=== PATIENT | male | born 1985 | race American Indian/Alaskan Native ===

== ENCOUNTER 2017-01-10 21:48 | Emergency (ER) | payer SELFPAY ==
--- NOTE | 2017-01-10 23:46 | XRay Report ---
FINAL REPORT PROCEDURE: XR HUMERUS 2+V LT TECHNIQUE: LEFT humerus radiographs, AP and lateral views. HISTORY: LEFT SHOULDER/LEFT ELBOW PAIN COMPARISON: No prior studies are available for comparison. FINDINGS: Fracture (s) and/or Dislocation(s): None . Joint space(s): Normal. Soft tissues: Normal. Bone mineralization: Normal. Foreign bodies: None. IMPRESSION: Normal Examination.
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
[2017-01-11] MEDS ORDERED: PERCOCET 5/325 PO ONE (02:00)
[2017-01-11] MEDS ORDERED: TRIPLE ANTIBIOTIC TP ONE (02:27)
[2017-01-11 02:43] VITALS: BP 132/84
== END 2017-01-11 02:35 | disposition home or self-care (01) ==
LOC: ED 21:48
DX: S40.812A Abrasion of left upper arm, initial encounter (principal); S40.022A Contusion of left upper arm, initial encounter; M79.1 Myalgia; M79.602 Pain in left arm; F17.200 Nicotine dependence, unspecified, uncomplicated; V86.99XA Unspecified occupant of other special all-terrain or other off-road motor vehicle injured in nontraffic accident, initial encounter; Y93.9 Activity, unspecified; Y92.9 Unspecified place or not applicable; Y99.9 Unspecified external cause status
CPT/HCPCS: 99284; A6250

== ENCOUNTER 2019-02-08 16:33 | Emergency (ER) | payer SELFPAY ==
[2019-02-08 17:32] VITALS: BP 133/67
[2019-02-08] MEDS ORDERED: IMITREX SUB-Q ONE (19:52)
--- NOTE | 2019-02-08 21:06 | Emergency Department Report ---
ED Headache HPI - General Chief Complaint: Headache Stated Complaint: HEADACHE X2WKS Time Seen by Provider: 02/08/19 19:25 - History of Present Illness Initial Comments: Patient is a 33-year-old male who presents to emergency room with complaints of a right frontal and surrounding the right eye headache that began 2 weeks ago. States his right eye has been watering. He states he does have blurry vision of the right eye when the pain gets uncomfortable but otherwise has no vision changes. He denies any numbness, weakness, gait disturbance, speech disturbance. He states that he has experienced these type of headaches in the past with the same symptoms. he denies any medical history or allergies to medications. Allergies/Adverse Reactions: Allergies No Known Allergies Allergy (Verified 02/08/19 16:53) Home Medications: Ambulatory Orders DOXYCYCLINE Hyclate [Vibramycin CAP] 100 mg PO Q12HR #20 capsule 04/29/17 Naproxen [Naprosyn] 500 mg PO BID PRN #20 tablet 04/29/17 traMADol [Ultram] 50 mg PO Q6HR PRN #12 tablet 04/29/17 Butalb/Acetaminophen/Caffeine [Fioricet 50-300-40 mg CAP] 1 cap PO Q8HR PRN #10 cap 02/08/19 ED Review of Systems ROS: Stated complaint: HEADACHE X2WKS Other details as noted in HPI Comment: All other systems reviewed and negative ED Past Medical Hx - Past Medical History Previous Medical History?: No - Surgical History Past Surgical History?: No - Social History Smoking Status: Current Every Day Smoker Substance Use Type: Alcohol, Marijuana - Medications Home Medications: Home Medications Medication Instructions Recorded Confirmed Last Taken Type DOXYCYCLINE Hyclate [Vibramycin 100 mg PO Q12HR #20 capsule 04/29/17 Unknown Rx CAP] Naproxen [Naprosyn] 500 mg PO BID PRN #20 tablet 04/29/17 Unknown Rx traMADol [Ultram] 50 mg PO Q6HR PRN #12 tablet 04/29/17 Unknown Rx Butalb/Acetaminophen/Caffeine 1 cap PO Q8HR PRN #10 cap 02/08/19 Unknown Rx [Fioricet 50-300-40 mg CAP] ED Physical Exam - General Limitations: No Limitations General appearance: alert, in no apparent distress - Head Head exam: Present: atraumatic, normocephalic, other (no sinus TTP bilaterally) - Eye Eye exam: Present: normal appearance, PERRL, EOMI, other (watering present of the right eye). Absent: conjunctival injection, nystagmus, periorbital swelling, periorbital tenderness - ENT ENT exam: Present: mucous membranes moist, other (normal turbinates BL) - Neck Neck exam: Present: full ROM. Absent: meningismus - Respiratory Respiratory exam: Present: normal lung sounds bilaterally. Absent: respiratory distress, wheezes, rales, rhonchi, stridor, accessory muscle use, decreased breath sounds, prolonged expiratory - Cardiovascular Cardiovascular Exam: Present: regular rate, normal rhythm, normal heart sounds. Absent: systolic murmur, diastolic murmur, rubs, gallop - Neurological Exam Neurological exam: Present: alert, oriented X3. Absent: CN II-XII intact, normal gait, motor sensory deficit - Psychiatric Psychiatric exam: Present: normal affect, normal mood - Skin Skin exam: Present: warm, dry, intact ED Course Vital Signs 02/08/19 02/08/19 17:31 21:20 Temperature 97.9 F Pulse Rate 89 52 L Respiratory 18 16 Rate Blood Pressure 133/67 O2 Sat by Pulse 100 100 Oximetry ED Medical Decision Making - Medical Decision Making Patient is a 33-year-old male who presents to emergency room with complaints of a right frontal and surrounding the right eye headache that began 2 weeks ago. States his right eye has been watering. He states he does have blurry vision of the right eye when the pain gets uncomfortable but otherwise has no vision changes. He denies any numbness, weakness, gait disturbance, speech disturbance. He states that he has experienced these type of headaches in the past with the same symptoms. he denies any medical history or allergies to medications. vitals are normal. on exam: some watering present of the right eye, no focal neuro deficit. pt history and examination consistent with cluster JEFFERS. pt given 100% oxygen and sumitriptan. pt states his headache improved. pt given prescription for fioricet. advised to please take medication as prescribed as needed. Follow-up with a neurologist in the next 2-3 days. drink plenty of water. Return to the emergency room for any new or worsening symptoms. - Differential Diagnosis migraine, cluster JEFFERS, tension JEFFERS, sinusitis Critical care attestation.: If time is entered above; I have spent that time in minutes in the direct care of this critically ill patient, excluding procedure time. ED Disposition Clinical Impression: Cluster headache Qualifiers: Headache chronicity pattern: episodic headache Intractability: not intractable Qualified Code(s): G44.019 - Episodic cluster headache, not intractable Disposition: DC- TO HOME OR SELFCARE Is pt being admited?: No Does the pt Need Aspirin: No Condition: Stable Instructions: Cluster Headache (ED) Additional Instructions: please take medication as prescribed as needed. Follow-up with a neurologist in the next 2-3 days. drink plenty of water. Return to the emergency room for any new or worsening symptoms. Prescriptions: Butalb/Acetaminophen/Caffeine [Fioricet 50-300-40 mg CAP] 1 cap PO Q8HR PRN #10 cap PRN Reason: Headache Referrals: ELIANA DELACRUZ MD [Referring] - 2-3 Days VARINDER KINCAID MD [Staff Physician] - 2-3 Days Time of Disposition: 21:05 Print Language: MARSHALLESE
== END 2019-02-08 21:20 | disposition home or self-care (01) ==
LOC: ED 16:33
DX: G44.019 Episodic cluster headache, not intractable (principal); H57.11 Ocular pain, right eye; F17.200 Nicotine dependence, unspecified, uncomplicated; F12.10 Cannabis abuse, uncomplicated; Z79.899 Other long term (current) drug therapy
CPT/HCPCS: 96372; J3030

== ENCOUNTER 2020-03-25 10:56 | Emergency (ER) | payer SELFPAY ==
--- NOTE | 2020-03-25 12:05 | XRay Report ---
XR ankle 3+V RT INDICATION / CLINICAL INFORMATION: fall/pain/swelling. COMPARISON: None available. FINDINGS: Significant soft tissue swelling of the medial lateral ankle. Avulsion fracture of the lateral malleo carlee tip. Normal alignment. Joint spaces are preserved. No destructive osseous lesion or suspicious p eriosteal reaction. Impression: 1. Significant soft tissue swelling with avulsion fracture of the lateral malleolus tip Signer Name: Jason Esparza MD Signed: 03/25/2020 12:00 PM Workstation Name: [id number]
[2020-03-25] MEDS ORDERED: MORPHINE 4 MG/1 ML INJ IM ONE (12:21)
[2020-03-25] MEDS ORDERED: KETOROLAC 30 MG/1 ML INJ IM ONE (12:22)
[2020-03-25] MEDS ORDERED: KETOROLAC 30 MG/1 ML INJ ONE (12:25)
[2020-03-25] MEDS ORDERED: MORPHINE 4 MG/1 ML INJ ONE (12:25)
--- NOTE | 2020-03-25 12:48 | Emergency Department Report ---
ED Lower Extremity HPI - General Chief Complaint: Extremity Injury, Lower Stated Complaint: RT ANKLE SWOLLEN Time Seen by Provider: 03/25/20 11:15 Source: patient, EMS Mode of arrival: Wheelchair Limitations: No Limitations - History of Present Illness MD Complaint: ankle injury -: days(s) Injury: Ankle: Right, Foot: Right Type of Injury: inversion, other Place: home Severity: mild Worsens With: nothing (Tripped going up steps) Associated Symptoms: unable to bear weight - Related Data Previous Rx's Medication Instructions Recorded Last Taken Type DOXYCYCLINE Hyclate [Vibramycin 100 mg PO Q12HR #20 capsule 04/29/17 Unknown Rx CAP] Butalb/Acetaminophen/Caffeine 1 cap PO Q8HR PRN #10 cap 02/08/19 Unknown Rx [Fioricet 50-300-40 mg CAP] Naproxen [Naprosyn TAB] 500 mg PO BID PRN #20 tablet 01/23/20 Unknown Rx Sulfamethoxazole/Trimethoprim 1 each PO BID 10 Days #30 tablet 01/23/20 Unknown Rx [Bactrim DS TAB] traMADoL [Ultram 50 MG tab] 50 mg PO Q6HR PRN #12 tablet 01/23/20 Unknown Rx Acetaminophen/Codeine [Tylenol 1 tab PO Q6H PRN #20 tab 03/25/20 Unknown Rx /Codeine # 3 tab] Allergies Allergy/AdvReac Type Severity Reaction Status Date / Time No Known Allergies Allergy Verified 01/23/20 15:33 ED Review of Systems ROS: Stated complaint: RT ANKLE SWOLLEN Other details as noted in HPI Comment: All other systems reviewed and negative ED Past Medical Hx - Past Medical History Previous Medical History?: No - Surgical History Past Surgical History?: No - Social History Smoking Status: Current Every Day Smoker Substance Use Type: Alcohol - Medications Home Medications: Home Medications Medication Instructions Recorded Confirmed Last Taken Type DOXYCYCLINE Hyclate [Vibramycin 100 mg PO Q12HR #20 capsule 04/29/17 Unknown Rx CAP] Butalb/Acetaminophen/Caffeine 1 cap PO Q8HR PRN #10 cap 02/08/19 Unknown Rx [Fioricet 50-300-40 mg CAP] Naproxen [Naprosyn TAB] 500 mg PO BID PRN #20 tablet 01/23/20 Unknown Rx Sulfamethoxazole/Trimethoprim 1 each PO BID 10 Days #30 tablet 07/31/20 Unknown Rx [Bactrim DS TAB] traMADoL [Ultram 50 MG tab] 50 mg PO Q6HR PRN #12 tablet 01/23/20 Unknown Rx Acetaminophen/Codeine [Tylenol 1 tab PO Q6H PRN #20 tab 03/25/20 Unknown Rx /Codeine # 3 tab] ED Physical Exam - General Limitations: No Limitations General appearance: alert, in no apparent distress - Head Head exam: Present: atraumatic, normocephalic - Eye Eye exam: Present: normal appearance, PERRL, EOMI - ENT ENT exam: Present: mucous membranes moist - Neck Neck exam: Present: normal inspection - Respiratory Respiratory exam: Present: normal lung sounds bilaterally. Absent: respiratory distress - Cardiovascular Cardiovascular Exam: Present: regular rate, normal rhythm. Absent: systolic murmur, diastolic murmur, rubs, gallop - GI/Abdominal GI/Abdominal exam: Present: soft, normal bowel sounds - Rectal Rectal exam: Present: deferred - Extremities Exam Extremities exam: Present: normal inspection, tenderness, joint swelling - Expanded Lower Extremity Exam Right Lower Leg exam: Present: normal inspection, full ROM. Absent: tenderness (No tenderness to the proximal fibula) Ankle exam: Present: tenderness, swelling, ecchymosis. Absent: anterior draw sign Foot/Toe exam: Present: tenderness, swelling - Back Exam Back exam: Present: normal inspection. Absent: CVA tenderness (R), CVA tenderness (L), paraspinal tenderness, vertebral tenderness - Neurological Exam Neurological exam: Present: alert, oriented X3, CN II-XII intact - Psychiatric Psychiatric exam: Present: normal affect, normal mood. Absent: anxious, manic, suicidal ideation - Skin Skin exam: Present: warm, dry, intact, normal color. Absent: rash ED Course Vital Signs 03/25/20 03/25/20 11:07 12:26 Temperature 98.1 F Pulse Rate 97 H Respiratory 18 18 Rate Blood Pressure 135/87 O2 Sat by Pulse 97 Oximetry - Procedure Description Procedures done: Right leg placed in a posterior short leg splint and she was provided with crutches. Neurovascularly intact Critical care attestation.: If time is entered above; I have spent that time in minutes in the direct care of this critically ill patient, excluding procedure time. ED Disposition Clinical Impression: High ankle sprain Disposition: DC-01 TO HOME OR SELFCARE Is pt being admited?: No Does the pt Need Aspirin: No Condition: Stable Instructions: Ankle Stirrup Splint (ED), Ankle Sprain (ED), RICE Therapy (ED), Ice Pack Application (ED) Prescriptions: Acetaminophen/Codeine [Tylenol /Codeine # 3 tab] 1 tab PO Q6H PRN #20 tab PRN Reason: pain Referrals: PRIMARY CAREMD [Primary Care Provider] - 3-5 Days [facility] [Provider Group] - 3-5 Days JOHN BUTLER MD [Staff Physician] - 3-5 Days
[2020-03-25 16:55] VITALS: BP 130/80
== END 2020-03-25 13:29 | disposition home or self-care (01) ==
LOC: ED 10:56
DX: S93.401A Sprain of unspecified ligament of right ankle, initial encounter (principal); Z79.899 Other long term (current) drug therapy; W10.9XXA Fall (on) (from) unspecified stairs and steps, initial encounter; Y93.89 Activity, other specified; Y92.89 Other specified places as the place of occurrence of the external cause; Y99.8 Other external cause status
CPT/HCPCS: 29515; 73610; 96372; 99284; J1885; J2270

== ENCOUNTER 2022-02-08 11:02 | Emergency (ER) | payer SELFPAY ==
--- NOTE | 2022-02-08 14:07 | Emergency Department Report ---
ED Headache HPI - General Chief Complaint: Headache Stated Complaint: HEAD ACHE Time Seen by Provider: 02/08/22 14:06 Source: patient Exam Limitations: no limitations - History of Present Illness Quality: mild Head Injury Location: frontal Recent Head Trauma: chronic headaches Modifying Factors: worse with: cold therapy, exposure to light, immobilization, medication, movement, rest, other Associated Symptoms: denies: denies symptoms, confusion, fatigue, facial pain, fever/chills, flushing, loss of consciousness, nausea/vomiting, nasal congestion, nasal drainage, numbness in legs/feet, rash, seizures, sinus infection, stiff neck, vision changes, weakness, other Allergies/Adverse Reactions: Allergies No Known Allergies Allergy (Verified 02/08/22 13:31) Home Medications: Ambulatory Orders Butalb/Acetaminophen/Caffeine [Fioricet 50-300-40 mg CAP] 1 cap PO Q8HR PRN #10 cap 02/08/22 ED Review of Systems ROS: Stated complaint: HEAD ACHE Other details as noted in HPI Comment: All other systems reviewed and negative ED Past Medical Hx - Past Medical History Previous Medical History?: Yes Hx Headaches / Migraines: Yes - Surgical History Past Surgical History?: No - Family History Family history: no significant - Social History Smoking Status: Current Every Day Smoker Substance Use Type: Alcohol - Medications Home Medications: Home Medications Medication Instructions Recorded Confirmed Last Taken Type Butalb/Acetaminophen/Caffeine 1 cap PO Q8HR PRN #10 cap 02/08/22 Unknown Rx [Fioricet 50-300-40 mg CAP] ED Physical Exam - General Limitations: No Limitations General appearance: alert, in no apparent distress - Head Head exam: Present: atraumatic, normocephalic - Eye Eye exam: Present: normal appearance - ENT ENT exam: Present: mucous membranes moist - Neck Neck exam: Present: normal inspection - Respiratory Respiratory exam: Present: normal lung sounds bilaterally. Absent: respiratory distress - Cardiovascular Cardiovascular Exam: Present: regular rate, normal rhythm. Absent: systolic murmur, diastolic murmur, rubs, gallop - GI/Abdominal GI/Abdominal exam: Present: soft, normal bowel sounds - Rectal Rectal exam: Present: deferred - Extremities Exam Extremities exam: Present: normal inspection - Back Exam Back exam: Present: normal inspection - Neurological Exam Neurological exam: Present: alert, oriented X3 - Psychiatric Psychiatric exam: Present: normal affect, normal mood - Skin Skin exam: Present: warm, dry, intact, normal color. Absent: rash ED Course Vital Signs 02/08/22 13:31 Temperature 97.8 F Pulse Rate 76 Respiratory 20 Rate Blood Pressure 146/101 [Right] O2 Sat by Pulse 100 Oximetry ED Medical Decision Making - Medical Decision Making Vital Signs 02/08/22 13:31 Temperature 97.8 F Pulse Rate 76 Respiratory 20 Rate Blood Pressure 146/101 [Right] O2 Sat by Pulse 100 Oximetry Critical care attestation.: If time is entered above; I have spent that time in minutes in the direct care of this critically ill patient, excluding procedure time. ED Disposition Clinical Impression: Headache, Elevated blood pressure reading Disposition: HOME / SELF CARE / HOMELESS Is pt being admited?: No Does the pt Need Aspirin: No Condition: Stable Additional Instructions: MONITOR YOUR BLOOD PRESSURE I AM NOT SURE IF IT IS INC BECAUSE OF YOUR PAIN OR IF THE BP IS CAUSING THE PAIN FIORICET IS FOR HEADACHES- YOUVE BEEN GIVEN THESE BEFORE REFERRALS BELOW TO PCP AND NEURO DOCTORS FOR FOLLOW UP DRINK PLENTY OF WATER MUNIR WHEN AT WORK AVOID ALCOHOL Referrals: ASTON LUDWIG MD [Staff Physician] - 3-5 Days NOAM MITCHELL MD [Staff Physician] - 3-5 Days Forms: Work/School Release Form(ED) Time of Disposition: 14:09
[2022-02-08] MEDS ORDERED: BUTALB/ACETAMINOPHEN/CAFFEINE TAB PO ONE (14:09)
[2022-02-08 15:49] VITALS: BP 121/78
== END 2022-02-08 15:49 | disposition home or self-care (01) ==
LOC: ED 11:02
DX: G43.909 Migraine, unspecified, not intractable, without status migrainosus (principal); R03.0 Elevated blood-pressure reading, without diagnosis of hypertension; F17.200 Nicotine dependence, unspecified, uncomplicated; Z72.89 Other problems related to lifestyle
CPT/HCPCS: 99282

== ENCOUNTER 2022-02-09 21:31 | Emergency (ER) | payer SELFPAY ==
[2022-02-10] MEDS ORDERED: METOCLOPRAMIDE 10 MG TAB PO ONE (01:05)
[2022-02-10] MEDS ORDERED: diphenhydrAMINE 25 MG CAP PO ONE (01:05)
[2022-02-10] MEDS ORDERED: ACETAMINOPHEN 500 MG TAB PO ONE (01:05)
--- NOTE | 2022-02-10 01:23 | Emergency Department Report ---
ED General Adult HPI - General Chief complaint: Headache Stated complaint: HEADACHE Time Seen by Provider: 02/10/22 01:04 Source: patient Mode of arrival: Ambulatory Limitations: No Limitations - History of Present Illness Initial comments: Patient 36-year-old male with history of migraine headaches who presents for frontal headache x3 days. 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 Pain is described at 5/10 sharp radiating to right forehead and eye. This is usual location and intensity for his migraine headaches. There is no fevers no chills no sore throat no ear pain no nausea or vomiting. Has been no decrease in vision. Mild photophobia. There is no neck pain no numbness or tingling. Patient denies fall injury or trauma. Patient is tolerating p.o. and hydration. Severity scale (0 -10): 4 - Related Data Previous Rx's Medication Instructions Recorded Last Taken Type Butalb/Acetaminophen/Caffeine 1 cap PO Q8HR PRN #10 cap 02/08/22 Unknown Rx [Fioricet 50-300-40 mg CAP] Allergies Allergy/AdvReac Type Severity Reaction Status Date / Time No Known Allergies Allergy Verified 02/08/22 13:31 ED Review of Systems ROS: Stated complaint: HEADACHE Other details as noted in HPI Constitutional: denies: chills, fever Eyes: other (Photophobia right). denies: eye pain, eye discharge, vision change ENT: denies: ear pain, throat pain Respiratory: denies: cough, shortness of breath, wheezing Cardiovascular: denies: chest pain, palpitations Endocrine: no symptoms reported Gastrointestinal: as per HPI Genitourinary: as per HPI Musculoskeletal: denies: back pain, joint swelling, arthralgia Skin: denies: rash, lesions Neurological: headache. denies: weakness, numbness, paresthesias, confusion, vertigo Psychiatric: denies: anxiety, depression Hematological/Lymphatic: denies: easy bleeding, easy bruising ED Past Medical Hx - Past Medical History Hx Headaches / Migraines: Yes - Social History Smoking Status: Unknown if ever smoked Substance Use Type: None - Medications Home Medications: Home Medications Medication Instructions Recorded Confirmed Last Taken Type Butalb/Acetaminophen/Caffeine 1 cap PO Q8HR PRN #10 cap 02/08/22 Unknown Rx [Fioricet 50-300-40 mg CAP] ED Physical Exam - General Limitations: No Limitations General appearance: alert, in no apparent distress - Head Head exam: Present: normocephalic, normal inspection - Eye Eye exam: Present: PERRL, EOMI. Absent: conjunctival injection, nystagmus Pupils: Present: normal accommodation - ENT ENT exam: Present: normal orophraynx, mucous membranes moist, TM's normal bilaterally - Neck Neck exam: Present: normal inspection, full ROM. Absent: tenderness (No posterior vertebral point tenderness. No paraspinous muscle tenderness. Range of motion is intact unrestricted to all quadrants. There is no swelling no ecchymosis no step-off.), meningismus, lymphadenopathy - Respiratory Respiratory exam: Present: normal lung sounds bilaterally. Absent: respiratory distress, wheezes - Cardiovascular Cardiovascular Exam: Present: regular rate, normal rhythm, normal heart sounds. Absent: systolic murmur, diastolic murmur, rubs, gallop - GI/Abdominal GI/Abdominal exam: Present: soft, normal bowel sounds. Absent: distended, tenderness - Rectal Rectal exam: Present: deferred - Extremities Exam Extremities exam: Present: normal inspection, full ROM, normal capillary refill - Back Exam Back exam: Present: normal inspection, full ROM. Absent: paraspinal tenderness, vertebral tenderness - Neurological Exam Neurological exam: Present: alert, oriented X3, CN II-XII intact, normal gait, motor sensory deficit, reflexes normal - Expanded Neurological Exam Expanded Patient oriented to: Present: person, place, time Speech: Present: fluid speech Cranial nerves: EOM's Intact: Normal, Tongue Deviation: Normal, Nystagmus: Normal, Facial Sensation: Normal Cerebellar function: Finger to Nose: Normal Motor strength exam: RUE: 5, LUE: 5, RLE: 5, LLE: 5 DTR: ankle (R): 1+, ankle (L): 1+ Best Eye Response ([place]): (4) open spontaneously Best Motor Response ([place]): (6) obeys commands Best Verbal Response ([place]): (5) oriented [place] Total: 15 - Psychiatric Psychiatric exam: Present: normal affect, normal mood, anxious - Skin Skin exam: Present: warm, dry, intact, normal color. Absent: rash ED Course Vital Signs 02/09/22 02/10/22 21:42 01:18 Temperature 97.4 F L Pulse Rate 60 Respiratory 18 14 Rate Blood Pressure 143/74 O2 Sat by Pulse 100 Oximetry ED Medical Decision Making - Medical Decision Making Patient advises symptoms are improved, patient prescribed for set as needed headaches. Patient advised to pickling operator prescription as scheduled. Patient will follow-up with neurology on Sunday as scheduled. Patient will return to emergency department should symptoms worsen. Patient is currently alert oriented x3 amatory with steady gait. Patient appears well and nontoxic and tolerating p.o. hydration at this time. Critical care attestation.: If time is entered above; I have spent that time in minutes in the direct care of this critically ill patient, excluding procedure time. ED Disposition Clinical Impression: Cluster headache Qualifiers: Headache chronicity pattern: chronic headache Intractability: not intractable Qualified Code(s): G44.029 - Chronic cluster headache, not intractable Headache Qualifiers: Headache type: cluster Headache chronicity pattern: episodic headache Intractability: not intractable Qualified Code(s): G44.019 - Episodic cluster headache, not intractable Disposition: HOME / SELF CARE / HOMELESS Is pt being admited?: No Does the pt Need Aspirin: No Condition: Stable Instructions: Form - Headache Record, Cluster Headache, [id number] Additional Instructions: Take medication as prescribed, follow-up with neurology as scheduled. Return to emergency department should symptoms worsen. Referrals: ASTON LUDWIG MD [Primary Care Provider] - 3-5 Days CATRINA MUELLER MD [Referring] - 3-5 Days Forms: Work/School Release Form(ED) Time of Disposition: 01:27
[2022-02-10 01:41] VITALS: BP 136/77
== END 2022-02-10 01:35 | disposition home or self-care (01) ==
LOC: ED 21:31
DX: G44.009 Cluster headache syndrome, unspecified, not intractable (principal)
CPT/HCPCS: 99282